=== PATIENT | female | born 1975 | race Caucasian/White ===

== ENCOUNTER 2019-06-09 11:49 | Outpatient (CLI) | payer OTHER ==
--- NOTE | 2019-06-09 13:55 | MMO ---
Bilateral MAMMO Bilat Screen [facility]. CLINICAL HISTORY: Patient is 44 years old and is seen for screening. The patient has the following family history of breast cancer: paternal aunt. The patient has no personal history of cancer. VIEWS: The views performed were: bilateral craniocaudal with tomosynthesis and bilateral mediolateral oblique with tomosynthesis. FILMS COMPARED: The present examination has been compared to prior imaging studies performed at [facility] on 07/16/2015 and 05/11/2017. MAMMOGRAM FINDINGS: There are scattered fibroglandular densities. There are no suspicious masses, suspicious calcifications, or new areas of architectural distortion. IMPRESSION: THERE IS NO MAMMOGRAPHIC EVIDENCE OF MALIGNANCY. A ROUTINE FOLLOW-UP MAMMOGRAM IN 1 YEAR IS RECOMMENDED. THE RESULTS OF THIS EXAM WERE SENT TO THE PATIENT. ACR BI-RADS Category 1 - Negative MAMMOGRAPHY NOTE: 1. A negative mammogram report should not delay a biopsy if a dominant of clinically suspicious mass is present. 2. Approximately 10% to 15% of breast cancers are not detected by mammography. 3. Adenosis and dense breasts may obscure an underlying neoplasm. Reported by: ALEJA MONSIVAIS MD Electonically Signed: [id number]
== END 2019-06-09 11:50 | disposition home or self-care (01) ==
LOC: BICMAMMO 11:49
PROVIDERS: ATTEND Obstetrics & Gynecology
DX: Z12.31 Encounter for screening mammogram for malignant neoplasm of breast (principal); Z80.3 Family history of malignant neoplasm of breast
CPT/HCPCS: 77063; 77067

== ENCOUNTER 2020-01-13 14:05 | Outpatient (CLI) | payer OTHER ==
--- NOTE | 2020-01-13 15:02 | RAD ---
LEFT ANKLE 3 VIEWS: HISTORY: Injury left ankle following a fall. FINDINGS: Minimal lateral soft tissue swelling. Calcaneal plantar enthesophyte. No fracture or dislocation. IMPRESSION: Degenerative changes and lateral soft tissue swelling without acute fracture or dislocation. POS: CECILIA
== END 2020-01-13 14:06 | disposition home or self-care (01) ==
LOC: SCSRAD 14:05
PROVIDERS: ATTEND Family Medicine
DX: S93.422A Sprain of deltoid ligament of left ankle, initial encounter (principal); M19.072 Primary osteoarthritis, left ankle and foot; M79.89 Other specified soft tissue disorders

== ENCOUNTER 2021-01-21 14:10 | Outpatient (CLI) | payer BC ==
--- NOTE | 2021-01-21 15:29 | MRI ---
MR OF THE LEFT KNEE WITHOUT CONTRAST: 01/21/21 INDICATION: History of left knee pain and internal derangement. COMPARISON: Prior radiograph of the left knee dated 01/19/21. FINDINGS: Motion artifact limits image detail of the exam. There is a complex multidirectional tear involving the body and posterior horn of the lateral meniscu s. There is a horizontal and vertically oriented oblique component particularly involving the body an d posterior junction. Medial meniscus is intact. The ACL, PCL, MCL and LCLC are intact. The extensor mechanism is intact. Articular cartilage of the patellofemoral compartment appears relatively well ma intained. There is some mild chondrosis involving the lateral femoral condyle. No definite full thick ness defect is grossly evident. IMPRESSION: 1. Multidirectional tear involving the body and posterior horn of the lateral meniscus. There is a predominantly horizontally and vertically oriented oblique components involving the body and poste rior junction of the lateral meniscus. 2. Medial meniscus is intact. POS: BH
== END 2021-01-21 14:11 | disposition home or self-care (01) ==
LOC: BICMRI 14:10
PROVIDERS: ATTEND Orthopaedic Surgery
DX: M23.92 Unspecified internal derangement of left knee (principal); S83.282A Other tear of lateral meniscus, current injury, left knee, initial encounter